=== PATIENT | female | born 1945 | race Caucasian/White ===

== ENCOUNTER → 2023-11-04 09:20 | Outpatient (REF) | payer MEDICARE, OTHER, SELFPAY | LOC: HWRAD 09:20 | PROVIDERS: ATTENDING PHYSICIAN Student in an Organized Health Care Education/Training Program; FAMILY PHYSICIAN Nurse Practitioner | DX: R10.13 Epigastric pain (principal) | CPT/HCPCS: 76700 ==

== ENCOUNTER → 2023-11-06 07:41 | Outpatient (REF) | payer MEDICARE, OTHER, SELFPAY | LOC: MRI 3T 07:41 | PROVIDERS: ATTENDING PHYSICIAN Student in an Organized Health Care Education/Training Program; FAMILY PHYSICIAN Nurse Practitioner | DX: K86.1 Other chronic pancreatitis (principal) | CPT/HCPCS: 74183; A9575 ==

== ENCOUNTER → 2024-03-23 12:36 | Outpatient (REF) | payer MEDICARE, OTHER, SELFPAY | LOC: HWRAD 12:36 | PROVIDERS: ATTENDING PHYSICIAN Nurse Practitioner | DX: M81.0 Age-related osteoporosis without current pathological fracture (principal) | CPT/HCPCS: 77080 ==

== ENCOUNTER → 2024-06-07 14:54 | Outpatient (REF) | payer MEDICARE, OTHER, SELFPAY | LOC: HWRCS 14:54 | PROVIDERS: ATTENDING PHYSICIAN Nuclear Medicine Nuclear Cardiology; FAMILY PHYSICIAN Family Medicine | DX: R07.89 Other chest pain (principal); I10 Essential (primary) hypertension; R00.2 Palpitations | CPT/HCPCS: 93306 ==

== ENCOUNTER → 2024-08-09 10:26 | Outpatient (REF) | payer MEDICARE, OTHER, SELFPAY | LOC: HWWDC 10:26 | PROVIDERS: ATTENDING PHYSICIAN Nurse Practitioner | DX: Z12.31 Encounter for screening mammogram for malignant neoplasm of breast (principal) | CPT/HCPCS: 77063; 77067 ==

== ENCOUNTER → 2024-10-01 08:51 | Outpatient (REF) | payer MEDICARE, OTHER, SELFPAY | LOC: HWRAD 08:51 | PROVIDERS: ATTENDING PHYSICIAN Nurse Practitioner | DX: R10.11 Right upper quadrant pain (principal) | CPT/HCPCS: 76700 ==

== ENCOUNTER 2024-10-21 14:02 | Emergency (ER) | payer OTHER, SELFPAY ==
[2024-10-21 14:24] VITALS: BP 148/83
--- NOTE | 2024-10-21 15:34 | ED.GENMED ---
History of Present Illness
<Amish Fernandez DO - Last Filed: 10/21/24 15:35>
General
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
Time Seen by Provider: 10/21/24 15:23
<Kaylee Yousif PA-C - Last Filed: 10/21/24 17:12>
General
Source: patient and family (Patient's daughter at bedside assisting with history)
Exam Limitations: none
Nursing documentation reviewed up to this point in time: agreed with
History of Present Illness
History of Present Illness:
Patient is a 79-year-old female presenting with daughter for evaluation of a bump on her left labia. Patient states initially noticing this bump after doing some gardening outside. She felt like something may have crawled into her pants. Patient
states bump has been present since. She denies any associated pain, itch. However that she notices it when she is in the shower. She is afraid that it may be a tick. She contacted her PCP who recommended that she come to the emergency department
due to concerns of Lyme disease if this was a tick. Patient has not had this bump evaluated by medical professional in the past.
Patient denies any fevers, chills, headache. No dysuria or vaginal discharge or pain.
Past History
<Amish Ruff DO Jim - Last Filed: 10/21/24 15:35>
Past History
ED Past Medical History: HTN and Hypercholesterolemia
ED Past Surgical History: Gynecological (Hysterectomy)
Social History
Tobacco: Non-smoker
Alcohol: None
Drug: None
Personal: Other
Living: with family
Employment: Retired
Family History
Family History: Other (Noncontributory)
Review of Systems
<Kaylee Yousif PA-C - Last Filed: 10/21/24 17:12>
Review of Systems
Allergies reviewed?: Yes
All Other Systems: ROS reviewed and negative except as documented in HPI and ROS
Phy Exam
<Kaylee Yousif PA-C - Last Filed: 10/21/24 17:12>
Physical Exam
Physical Exam:
Vitals: Hypertensive, otherwise vital signs stable. Afebrile
General: Patient is well appearing, no acute distress
Skin: Warm and dry, no rashes or lesions
Head: Normocephalic, atraumatic
Throat: Protecting airway
Neck: Normal ROM, no cervical spine tenderness
Cardiac: Regular rate
Pulm: No apparent respiratory distress
Abdomen: Abdomen soft and nontender. Nondistended
Pelvic: External exam with what appears to be a small epidermal inclusion cyst on left labia majora at superior aspect. No erythema, warmth, or drainage. No visualized tick or bug bite. No bull's-eye rash. No lymphadenopathy
Extremities: No evidence of cyanosis or edema
Neuro: Grossly intact
Psychiatric: Normal affect.
Course
<Amish Fernandez DO - Last Filed: 10/21/24 15:35>
Vital Signs
Initial and Last Documented VS:
Initial Vital Signs
Temp Pulse Resp BP Pulse Ox
98.5 F 76 18 148/83 99
10/21/24 14:24 10/21/24 14:24 10/21/24 14:24 10/21/24 14:24 10/21/24 14:24
Last Documented Vital Signs
Temp Pulse Resp BP Pulse Ox
98.5 F 76 18 148/83 99
10/21/24 14:24 10/21/24 14:24 10/21/24 14:24 10/21/24 14:24 10/21/24 14:24
<Kaylee Yousif PA-C - Last Filed: 10/21/24 17:12>
Vital Signs
Initial and Last Documented VS:
Initial Vital Signs
Temp Pulse Resp BP Pulse Ox
98.5 F 76 18 148/83 99
10/21/24 14:24 10/21/24 14:24 10/21/24 14:24 10/21/24 14:24 10/21/24 14:24
Last Documented Vital Signs
Temp Pulse Resp BP Pulse Ox
98.5 F 76 18 148/83 99
10/21/24 14:24 10/21/24 14:24 10/21/24 14:24 10/21/24 14:24 10/21/24 14:24
Procedures
<Kaylee Yousif PA-C - Last Filed: 10/21/24 17:12>
Incision/Drainage/Joint Aspiration
Left labia majora:
Anethesia: 1% Lidocaine
Preparation: cleaned with alcohol wipe
Type of procedure: incise and drain
Nature of site: cyst
Description of abscess: less than 3cm
Loculations broken up: No
How much fluid was obtained?: scant amount
Fluid description: purulent
Treatment: left open for drainage
<Kaylee Yousif PA-C - Last Filed: 10/21/24 17:12>
MDM/Problems Addressed
Differential Diagnosis Includes:
Not limited to: Cyst, bug bite, folliculitis, ingrown hair,
MDM/Problems Addressed:
79-year-old female with small bump to left labia majora over the past 3 months. Not associate with any pain, itch, drainage. No evidence of bug bite, tick, or rash. Patient stable vital signs. On exam�patient is very well-appearing. External
visualization shows a small likely cyst to left labia majora at superior aspect. No surrounding erythema, warmth or evidence of cellulitis. Incision and drainage was performed. Area was cleansed with alcohol swab. Small amount of 1% lidocaine was
used anesthetize the area. Small incision using 11 blade to express very minimal amount of purulent material. Ultimately�findings were consistent with a small epidermal inclusion cyst. No evidence of overlying cellulitis. No visualized tick.
Patient stable for discharge with primary care follow-up. Advised monitoring for signs infection although at this point no indication for antibiotics. Return precautions discussed including signs of infection. Patient verbalized
Chronic conditions affecting care:
N/A
Acute Exacerbation and/or Progression of Chronic Illness:
N/A
<Kaylee Yousif PA-C - Last Filed: 10/21/24 17:12>
*Pulse Oximetry
Patient hypoxic: no
*EKG
Interpreted by ED Provider?: NA
*Spanish Language Lecturer Interpretation
Rate: Spanish Language Lecturer- N/A
*Critical Care Note
Total Time (30-74mins, 75-104mins- exclusive of procedures): Not Applicable
ED Attending Note
<Amish Fernandez DO - Last Filed: 10/21/24 15:35>
ED Attending Note
Patient seen and examined by attending physician: Yes
I performed the substantive portion of visit, reviewed & personally made and approve the management plan that is documented in note by myself or ANAMARIA.: Yes
ED Attending Note:
I evaluated the patient at bedside. At the superior aspect of the left labia majora, there is a pinpoint lesion more consistent with a blackhead. I tried to unroofed the area. I see no evidence of tick. There is no sign of erythema type rash.
There is no sign of cellulitis.
-
Portions of this chart may have been created with voice recognition software.� Occasional wrong word or��sound alike� substitutions may have occurred due to the inherent limitations of voice recognition software.
Discharge Plan
Departure
Patient Disposition: Home (Routine Discharge)
Date of Disposition: 10/21/24
Time of Disposition: 16:01
Patient with high blood pressure during this ER visit?: Yes
Condition: Good
Covid-19: Not Applicable
Discharge Problem:
Epidermal cyst of vulva
Instructions: Epidermal Cyst (DC), BLOOD PRESSURE
Prescriptions:
No Action
carvedilol 12.5 MG tablet
25 mg PO BID
zolpidem 5 MG tablet
7.5 mg PO HS
lisinopril 20 MG tablet
20 mg PO BID
amlodipine 5 MG tablet
5 mg PO DAILY
lorazepam 0.5 MG tablet
0.5 mg PO PRN (Reason: anxiety)
levofloxacin 500 MG tablet
500 mg PO DAILY Qty: 9 0RF
phenazopyridine 200 MG tablet
200 mg PO TID Qty: 6 0RF
Activity Restrictions/Additional Instructions:
Return to the emergency department with any fevers, chills, or signs of infection in groin area
-As discussed�there is no evidence of a tick on your exam today. I suspect this is likely a epidermal cyst. It is possible that this will recur or get larger. Monitor closely for signs of infection including redness, warmth, drainage, fevers
-You can apply warm compress to the affected area.
-Keep area clean and dry and wash daily.
-Follow-up with primary care as needed for further evaluation/management
Interventions
Interventions:
*Risk Screen - Suicide Last Done: 10/21/24 14:24
*General Assessment Last Done: 10/21/24 14:24
*Neglect/Abuse Screening Last Done: 10/21/24 14:24
*Nursing Disposition Last Done: 10/21/24 16:56
ED-Female Genitourinary Assessment Last Done: 10/21/24 16:49
Discharge Date and Time
Discharge Date/Time: 10/21/24 16:56
Print Language: GUAMANIAN
== END 2024-10-21 16:56 | disposition home or self-care (01) ==
LOC: EMR 14:02
PROVIDERS: EMERGENCY PHYSICIAN Emergency Medicine; FAMILY PHYSICIAN Nurse Practitioner
DX: L72.0 Epidermal cyst (principal); N90.7 Vulvar cyst; I10 Essential (primary) hypertension
CPT/HCPCS: 99283; 56420

== ENCOUNTER → 2025-04-25 09:17 | Outpatient (REF) | payer OTHER, SELFPAY | LOC: HWRAD 09:17 | PROVIDERS: ATTENDING PHYSICIAN Nurse Practitioner Family | DX: E03.9 Hypothyroidism, unspecified (principal) | CPT/HCPCS: 76536 ==